=== PATIENT | female | born 1970 | race Caucasian/White ===

== ENCOUNTER 2020-01-20 15:10 | Emergency (ER) | payer BC ==
[~2020-01-20] VITALS: Ht 167.6 cm; Wt 68.2 kg
[~2020-01-20 15:10] MED LIST: CARV25TA PO; CARV40CP PO; LISI-338 PO; NITR0.4T22 SL; [UNRECOGNIZED DRUG - CODE] PO
[2020-01-20] MEDS ORDERED: IV NORMAL SALINE 1,000ML 1,000 ML IV SCH (15:27)
[2020-01-20] MEDS ORDERED: ASPIRIN 81 MG TAB.CHEW PO ONE (15:30)
[2020-01-20] MEDS ORDERED: ONDANSETRON PF 4 MG/2 ML VIAL. IVP ONE (15:30)
--- NOTE | 2020-01-20 15:45 | RAD ---
PORTABLE CHEST 1V History: Chest pain Comparison: December 09, 2013 Findings: Single view of the chest is submitted. There is again single lead left electronic cardiac device. Cardiac silhouette is stable. There is no new infiltrate, pleural fluid, or pneumothorax. Impression: 1. There is no radiographic evidence of acute cardiopulmonary disease. Electronically signed by: Sohan Hardy MD (01/20/2020 3:42 PM) [facility]
[2020-01-20 15:49] LABS: BASO # 0.1 x10^3/uL (0.0-0.2); BASO % 1 % (0-3); EOS # 0.2 x10^3/uL (0.0-0.7); EOS % 2 % (0-3); HEMATOCRIT 43.5 % (36.0-47.0); HEMOGLOBIN 14.4 g/dL (12.0-15.5); LYMPH # 2.4 x10^3/uL (1.0-4.8); LYMPH % 30 % (24-48); MEAN CORPUSCULAR HEMOGLOBIN 29 pg (25-35); MEAN CORPUSCULAR HGB CONC 33 g/dL (31-37); MEAN CORPUSCULAR VOLUME 89 fL (79-100); MONO # 0.4 x10^3/uL (0.0-1.1); MONO % 5 % (0-9); NEUT # 4.9 x10^3uL (1.8-7.7); NEUT % 62 % (31-73); PLATELET COUNT 244 x10^3/uL (140-400); RED BLOOD COUNT 4.91 x10^6/uL (3.50-5.40); RED CELL DISTRIBUTION WIDTH 13.7 % (11.5-14.5); WHITE BLOOD COUNT 7.9 x10^3/uL (4.0-11.0)
[2020-01-20 15:50] LABS: CALCIUM 9.6 mg/dL (8.5-10.1); CREATININE 0.9 mg/dL (0.6-1.0)
[2020-01-20 16:01] LABS: ALBUMIN 4.1 g/dL (3.4-5.0); ALBUMIN/GLOBULIN RATIO 1.1 (1.0-1.7); MAGNESIUM 1.8 mg/dL (1.8-2.4); TOTAL BILIRUBIN 0.3 mg/dL (0.2-1.0); TOTAL PROTEIN 7.7 g/dL (6.4-8.2)
--- NOTE | 2020-01-20 16:04 | PHYS DOC ---
Past History Past Medical History: Anxiety, Depression, GERD, Hypertension, [place] Past Surgical History: Other Additional Past Surgical Histo: defibrilator Smoking: Quit Greater Than 1 Year Alcohol Use: None Drug Use: None Adult General Chief Complaint Chief Complaint: CHEST PAIN [facility] HPI Patient is a 49-year-old female who presents with complaint of midsternal chest pain that started about 90 minutes prior to arrival. Patient currently rates the pain at about a 5 out of 10 and describes the pain as a deep pressure. Patient states that she has been nauseated and did have some diaphoresis associated with the chest pain. She does indicate that the pain is worsened with exertion. Patient does have cardiac history and states that this is similar to when she had a heart attack in the past. Patient states that nothing is improving her symptoms.[] Review of Systems Review of Systems Constitutional: Denies fever or chills [] Respiratory: Denies cough or shortness of breath [] Cardiovascular: No additional information not addressed in HPI [] GI: Denies abdominal pain, nausea, vomiting or diarrhea [] Integument: Denies rash or skin lesions [] Neurologic: Denies headache, focal weakness or sensory changes [] All other systems were reviewed and found to be within normal limits, except as documented in this note. Current Medications Current Medications Current Medications Medications (Trade) Dose Ordered Sig/[facility] Start Time Stop Time Status Last Admin Dose Admin Aspirin (Children'S Aspirin) 324 mg 1X ONCE 01/20/20 15:30 01/20/20 15:38 DC 01/20/20 15:45 324 MG Fentanyl Citrate (Fentanyl 2ml Vial) 50 mcg 1X ONCE 01/20/20 15:30 01/20/20 15:38 DC 01/20/20 15:45 50 MCG Ondansetron HCl (Zofran) 4 mg 1X ONCE 01/20/20 15:30 01/20/20 15:38 DC 01/20/20 15:45 4 MG Sodium Chloride 1,000 ml @ 1,000 mls/hr Q1H 01/20/20 15:27 01/20/20 16:26 01/20/20 15:45 1,000 MLS/HR Allergies Allergies Allergies Coded Allergies Type Severity Reaction Last Updated Verified Iikctbh-Ckl-Pyn Reductase Inhibitor Allergy 12/11/13 Yes clopidogrel bisulfate Allergy Hives 12/09/13 Yes morphine Allergy 12/09/13 Yes Physical Exam Physical Exam Constitutional: Well developed, well nourished, no acute distress, non-toxic ap pearance. [] HENT: Normocephalic, atraumatic, bilateral external ears normal, oropharynx moist, no oral exudates, nose normal. [] Eyes: PERRLA, EOMI, conjunctiva normal, no discharge. [] Neck: Normal range of motion, no tenderness, supple, no stridor. [] Cardiovascular: Regular rate and rhythm[] Lungs & Thorax: Bilateral breath sounds clear to auscultation [] Abdomen: Bowel sounds normal, soft, no tenderness. [] Skin: Warm, dry, no erythema, no rash. [] Extremities: No tenderness, no cyanosis, no clubbing, ROM intact, no edema. [] Neurologic: Alert and oriented X 3, no focal deficits noted. [] Current Patient Data Vital Signs Vital Signs Date Time Temp Pulse Resp B/P (MAP) Pulse Ox O2 Delivery O2 Flow Rate FiO2 01/20/20 15:30 60 18 127/83 (98) 98 Lab Results Laboratory Tests Test 01/20/20 15:20 Sodium Level 143 mmol/L (136-145) Potassium Level 3.8 mmol/L (3.5-5.1) Chloride Level 103 mmol/L (98-107) Carbon Dioxide Level 30 mmol/L (21-32) Anion Gap 10 (6-14) Blood Urea Nitrogen 17 mg/dL (7-20) Creatinine 0.9 mg/dL (0.6-1.0) Estimated GFR (Cockcroft-Gault) 66.0 BUN/Creatinine Ratio 19 (6-20) Glucose Level 88 mg/dL (70-99) Calcium Level 9.6 mg/dL (8.5-10.1) Magnesium Level Pending Total Bilirubin Pending Aspartate Amino Transferase (AST) Pending Alanine Aminotransferase (ALT) Pending Alkaline Phosphatase Pending LA-Nrt-S-Type Natriuretic Peptide Pending Total Protein Pending Albumin Pending Albumin/Globulin Ratio Pending EKG EKG EKG demonstrates normal sinus rhythm with rate of 60.[] Radiology/Procedures Radiology/Procedures [] Impressions: PROCEDURE: PORTABLE CHEST 1V PORTABLE CHEST 1V History: Chest pain Comparison: December 09, 2013 Findings: Single view of the chest is submitted. There is again single lead left electronic cardiac device. Cardiac silhouette is stable. There is no new infiltrate, pleural fluid, or pneumothorax. Impression: 1. There is no radiographic evidence of acute cardiopulmonary disease. Electronically signed by: Sohan Hardy MD (01/20/2020 3:42 PM) [id number] Course & Med Decision Making Course & Med Decision Making Pertinent Labs and Imaging studies reviewed. (See chart for details) A sugar moved to room upon arrival was evaluated by your medical staff after which an IV was established and blood work was drawn. EKG was also obtained and demonstrated no significant acute process. Workup was completed and initial troponin unremarkable. Findings reviewed with patient and recommendation for admission was made. Patient is requesting transfer to [facility] as that is where her machine biller is. [facility] was contacted and is currently on diversion. Patient has spoken with her machine biller, Dr. Ramírez, and he is recommending transfer to [facility]. transfer Center has been contacted and patient will be transferred to . [place] Disclaimer Dragon Disclaimer This electronic medical record was generated, in whole or in part, using a voice recognition dictation system. Departure Departure: Impression: Primary Impression: Chest pain Disposition: 02 XFER SHT-TRM HOSP Condition: IMPROVED Referrals: JAY GUERRA DO (PCP) CORETTA CHAKRABORTY Jr., DO Jan 20, 2020 16:04
[2020-01-20 16:06] LABS: POTASSIUM 3.8 mmol/L (3.5-5.1)
[2020-01-20] MEDS: NITROGLYCERIN SUBLINGUAL 0.4 MG BOTTLE OF 25. SL PRN ×2 (16:23→16:40)
--- NOTE | 2020-01-20 17:32 | EKG ---
[address] [address] Test Date: 2020-01-20 Test Time: 15:20:29 Pat Name: RUSTAM GARY Department: Room: Gender: F Wagon Driver: : [id number] Requested By: CORETTA CHAKRABORTY Order Number: [id number] Reading MD: Measurements Intervals Taylor Rate: 60 P: 129 WI: 144 QRS: -178 QRSD: 80 T: 81 QT: 410 QTc: 410 Interpretive Statements SINUS RHYTHM ABNORMAL RIGHT SUPERIOR AXIS DEVIATION LOW LIMB LEAD VOLTAGE QRS(T) CONTOUR ABNORMALITY CONSISTENT WITH HIGH LATERAL INFARCT AGE UNDETERMINED CONSISTENT WITH INFERIOR INFARCT PROBABLY OLD ABNORMAL ECG RI6.01 No previous ECG available for comparison
[2020-01-20] MEDS ORDERED: HYDROcodone/APAP 5/325MG 1 TAB TABLET PO ONE (19:15)
[2020-01-20 20:20] VITALS: BP 108/74
[2020-01-20 21:18] LABS: BACTERIA,URINE 0 /HPF (0-FEW); BILIRUBIN,URINE NEG (NEG); CLARITY,URINE HAZY; COLOR,URINE YELLOW; GLUCOSE,URINE NEG (NEG); NITRITE,URINE NEG (NEG); RBC,URINE 0 /HPF (0-2); UROBILINOGEN,URINE 0.2 mg/dL (0.2 mg/dL)
[2020-01-20 21:19] LABS: SQUAMOUS EPITHELIAL CELL,UR FEW /LPF
== END 2020-01-20 20:38 | disposition short-term general hospital (02) ==
LOC: ER 15:10
DX: R07.2 Precordial pain (principal); K21.9 Gastro-esophageal reflux disease without esophagitis; I10 Essential (primary) hypertension; I25.2 Old myocardial infarction; Z87.891 Personal history of nicotine dependence; Z88.5 Allergy status to narcotic agent; Z88.8 Allergy status to other drugs, medicaments and biological substances
CPT/HCPCS: 36415; 71045; 80053; 81001; 83735; 83880; 84484; 85025; 87086; 93005; 96374; 96375; 96376; 99285; J2405; J3010; J7030